=== PATIENT | male | born 1995 | race Caucasian/White ===

== ENCOUNTER 2020-11-25 13:51 | Emergency (ER) | payer BC | END 2020-11-25 14:57 | disposition home or self-care (01) | LOC: MADERS 13:51 | DX: J03.90 Acute tonsillitis, unspecified (principal); F17.220 Nicotine dependence, chewing tobacco, uncomplicated | CPT/HCPCS: 99282 ==

== ENCOUNTER 2021-09-23 00:33 | Emergency (ER) | payer BC, OTHER ==
[2021-09-23] MEDS ORDERED: Bacitracin 1 PK ONE (01:00)
== END 2021-09-23 01:05 | disposition home or self-care (01) ==
LOC: MADERS 00:33
DX: S61.211A Laceration without foreign body of left index finger without damage to nail, initial encounter (principal); T22.00XA Burn of unspecified degree of shoulder and upper limb, except wrist and hand, unspecified site, initial encounter; Z77.098 Contact with and (suspected) exposure to other hazardous, chiefly nonmedicinal, chemicals; W26.8XXA Contact with other sharp object(s), not elsewhere classified, initial encounter; F17.220 Nicotine dependence, chewing tobacco, uncomplicated
CPT/HCPCS: 99283